=== PATIENT | male | born 1940 | race Caucasian/White ===

== ENCOUNTER 2016-09-29 15:11 | Emergency (ER) | payer MEDICARE, OTHER ==
[~2016-09-29] VITALS: Ht 175.3 cm; Wt 92.7 kg
[~2016-09-29 15:11] MED LIST: ASPIRIN E.C. 8181 MG PO; ATENOLOL25 MG PO; ATIVAN 1MG T1 MG/TAB PO; CELEXA10 MG PO; COLCRYS0.6 MG PO; GEMFIBROZIL600 MG PO; HCTZ; LOPID 600M600 MG/TAB PO; MELOXICAM; NEURONTIN300 MG/CAP PO; NEXIUM 40MG40 MG PO; NEXIUM40 MG PO; NORCO 325 MG-101 TAB PO; NORCO 325 MG-7.1 TAB PO; OMEGA-3 FISH1200 MG PO; PERCOCET 325 MG1 TA2 PO; PYRIDIUM200 M1 PO; TENORMIN 5050 MG/TAB PO; UROXATRAL10 M1 PO; WELLBUTRIN SR150 M1 PO; ZESTRIL 10MG10 MG PO; ZYLOPRIM 100MG100 MG PO
[2016-09-29 15:12] VITALS: BP 118/80; PULSE 64; TEMP 98.2
[2016-09-29] MEDS ORDERED: CEPHALEXIN500 M1 PO (16:36)
== END 2016-09-29 16:41 | disposition home or self-care (01) ==
LOC: COL.ER 15:11
DX: S61.313A Laceration without foreign body of left middle finger with damage to nail, initial encounter (principal); W31.2XXA Contact with powered woodworking and forming machines, initial encounter; Y92.009 Unspecified place in unspecified non-institutional (private) residence as the place of occurrence of the external cause; Z23 Encounter for immunization

== ENCOUNTER 2019-03-15 18:15 | Emergency (ER) | payer MEDICARE, OTHER ==
[~2019-03-15] VITALS: Ht 172.7 cm; Wt 83.2 kg
[~2019-03-15 18:15] MED LIST changes: +CEPHALEXIN500 M1 PO
[2019-03-15 18:22] VITALS: TEMP 97.3
[2019-03-15 21:21] VITALS: BP 103/74; PULSE 64
== END 2019-03-15 21:28 | disposition home or self-care (01) ==
LOC: COL.ER 18:15
DX: T18.198A Other foreign object in esophagus causing other injury, initial encounter (principal); I10 Essential (primary) hypertension; F41.9 Anxiety disorder, unspecified; Z79.82 Long term (current) use of aspirin
CPT/HCPCS: J2704; J7120

== ENCOUNTER 2019-10-13 13:10 | Emergency (ER) | payer MEDICARE, OTHER ==
[~2019-10-13] VITALS: Ht 172.7 cm; Wt 84.1 kg
[2019-10-13 13:28] VITALS: PULSE 108; TEMP 97.2
[2019-10-13 14:24] LABS: BASO % 0.2 % (0.0-2.0); GRAN % 79.4 % (42.2-75.2); HEMATOCRIT 41.8 % (42.0-52.0); HEMOGLOBIN 14.6 g/dl (13.5-18.0); LYMPH # 0.9 (1.2-3.4); LYMPH % 9.6 % (20.0-51.0); MEAN CELL VOLUME 95 fl (80.0-100.0); MEAN CORPUSCULAR HEMOGLOBIN 33 pg (27.0-31.0); MEAN CORPUSCULAR HGB CONC 35 g/dl (33.0-37.0); MEAN PLATELET VOLUME 9.9 fl (7.4-10.4); MONO # 0.9 (0.1-0.6); MONO % 10.2 % (1.7-9.3); PLATELET COUNT 196 K/mm3 (130-400); RED BLOOD COUNT 4.41 M/mm3 (4.20-5.60); REDCELL DISTRIBUTION WIDTH-CV 12.7 % (11.5-14.5)
[2019-10-13 14:32] LABS: ALANINE AMINOTRANSFERASE 15 U/L (21-72); ALBUMIN 4.9 gm/dL (3.5-5.0); ALKALINE PHOSPHATASE 58 U/L (50-136); ANION GAP 15 mmol/L (7-16); AST,SGOT 66 U/L (15-37); BILIRUBIN,TOTAL 1.7 mg/dL (0.0-1.0); BLOOD UREA NITROGEN 21 mg/dL (9-20); CARBON DIOXIDE 20 mmol/L (22-30); CHLORIDE 106 mmol/L (98-107); CREATININE, serum 1.82 (0.66-1.25); GLUCOSE 94 mg/dL (74-106); LIPASE 55 U/L (23-300); POTASSIUM 4.5 mmol/L (3.4-5.0); SODIUM 141 mmol/L (137-145); TOTAL PROTEIN 7.7 gm/dL (6.4-8.2)
[2019-10-13 14:35] LABS: C-REACTIVE PROTEIN < 0.5 mg/dL (0.0-0.9)
[2019-10-13 14:40] LABS: COLLECTION METHOD CLEAN CATCH
[2019-10-13 14:49] LABS: MUCOUS Present /lpf; PH 6 (5-8); SQUAMOUS EPITHELIAL None Seen /hpf; URINE APPEARANCE Clear; URINE BACTERIA None Seen /hpf; URINE BILIRUBIN Negative (NEGATIVE); URINE BLOOD 2+ (NEGATIVE); URINE COLOR Yellow; URINE GLUCOSE Negative (NEGATIVE); URINE KETONE 1+ (NEGATIVE); URINE LEUKOCYTE ESTERASE Negative (NEGATIVE); URINE NITRATE Negative (NEGATIVE); URINE PROTEIN(semi-quant) 2+ (NEGATIVE); URINE RBC 0-2 /hpf; URINE UROBILINOGEN Negative (NEGATIVE)
[2019-10-13] MEDS ORDERED: ZOFRAN 4MG T4 MG/TAB PO (14:49)
[2019-10-13 16:30] VITALS: BP 130/90
== END 2019-10-13 16:30 | disposition home or self-care (01) ==
LOC: COL.ER 13:10
PROVIDERS: Emergency Medicine
DX: K52.9 Noninfective gastroenteritis and colitis, unspecified (principal); I12.9 Hypertensive chronic kidney disease with stage 1 through stage 4 chronic kidney disease, or unspecified chronic kidney disease; N18.9 Chronic kidney disease, unspecified; Z79.82 Long term (current) use of aspirin
CPT/HCPCS: J1170; J2405; J7030

== ENCOUNTER 2020-05-24 10:46 | Inpatient (IN) | payer MEDICARE, OTHER ==
[~2020-05-24] VITALS: Ht 172.7 cm; Wt 90.8 kg
[~2020-05-24 10:46] MED LIST changes: -CELEXA10 MG PO; +CELEXA40 MG PO; +ZOFRAN 4MG T4 MG/TAB PO
[2020-05-24 11:58] LABS: BASO # 0.1 (0.0-0.2); BASO % 0.8 % (0.0-2.0); EOS # 0.2 (0.0-0.7); EOS % 3.1 % (0-4.0); GRAN # 4.1 (1.4-6.5); GRAN % 66.6 % (42.2-75.2); HEMATOCRIT 37.3 % (42.0-52.0); HEMOGLOBIN 12.3 g/dl (13.5-18.0); LYMPH # 0.9 (1.2-3.4); LYMPH % 15.3 % (20.0-51.0); MEAN CELL VOLUME 99 fl (80.0-100.0); MEAN CORPUSCULAR HEMOGLOBIN 33 pg (27.0-31.0); MEAN CORPUSCULAR HGB CONC 33 g/dl (33.0-37.0); MEAN PLATELET VOLUME 10.6 fl (7.4-10.4); MONO # 0.8 (0.1-0.6); MONO % 13.2 % (1.7-9.3); PLATELET COUNT 163 K/mm3 (130-400); RED BLOOD COUNT 3.77 M/mm3 (4.20-5.60); REDCELL DISTRIBUTION WIDTH-CV 13.2 % (11.5-14.5)
[2020-05-24 12:04] LABS: INR 1.2 (0.8-3.0); PROTHROMBIN TIME 13.6 SECONDS (9.7-12.8)
[2020-05-24 12:11] LABS: ALBUMIN 3.9 gm/dL (3.5-5.0); BILIRUBIN,TOTAL 0.6 mg/dL (0.0-1.0); CALCIUM 8.7 mg/dL (8.4-10.2); CREATININE, serum 1.27 (0.66-1.25); POTASSIUM 4.4 mmol/L (3.4-5.0); TOTAL PROTEIN 6.5 gm/dL (6.4-8.2)
[2020-05-24] MEDS ORDERED: REMERON 15M15 MG/TA1 PO (12:39)
[2020-05-24] MEDS ORDERED: CELEBREX400 MG PO (12:41)
[2020-05-24] MEDS ORDERED: ANTIVERT 25MG25 MG PO (12:43)
[2020-05-24] MEDS ORDERED: ROBAXIN 75750 MG/TAB PO (12:43)
[2020-05-24] MEDS ORDERED: ASPIRIN 81M81 MG/TA2 PO (12:44)
[2020-05-24] MEDS ORDERED: ZYLOPRIM 100MG100 MG PO (12:46)
[2020-05-24] MEDS ORDERED: LOPID 600M600 MG/TAB PO (12:47)
[2020-05-24] MEDS ORDERED: NEURONTIN300 MG/CAP PO (12:47)
[2020-05-24] MEDS ORDERED: ACIPHEX20 MG PO (12:48)
[2020-05-24] MEDS ORDERED: OMEGA-3 1000 MG1 CAP PO (12:49)
[2020-05-24 13:45] LABS: COLLECTION METHOD CLEAN CATCH
[2020-05-24 13:59] VITALS: BP 153/94; PULSE 78; TEMP 97.7
[2020-05-24 13:59] LABS: MUCOUS Present /lpf; PH 6 (5-8); SQUAMOUS EPITHELIAL None Seen /hpf; URINE APPEARANCE Clear; URINE BACTERIA None Seen /hpf; URINE BILIRUBIN Negative (NEGATIVE); URINE BLOOD Negative (NEGATIVE); URINE COLOR Yellow; URINE GLUCOSE Negative (NEGATIVE); URINE KETONE Negative (NEGATIVE); URINE LEUKOCYTE ESTERASE Negative (NEGATIVE); URINE NITRATE Negative (NEGATIVE); URINE PROTEIN(semi-quant) 1+ (NEGATIVE); URINE RBC 0-2 /hpf; URINE UROBILINOGEN Negative (NEGATIVE)
--- NOTE | 2020-05-24 14:00 | NUR ---
PATIENT ADMITED INTO ROOM 325 FROM ER WITH LEFT HIP FX. PATIENT IS ALERT BUT HAS HX OF MILD DEMENTIA. ORIENTED X2. PATIENT IS EKWOK. VSS. PATIENT ONLY C/O WITH MOVEMENT. LLE ELEVATED WITH PILLOW. TEDS TO RLE. SCD'S TO BLE. POSITIVE +1 PEDAL PULSES TO BLE. TURNER TO DD. IV FLUIDS INFUSING INTO RIGHT FORARM IV. NO C/O N/V. HEAD TO TOE ASSESSMENT COMPLETE. GRAND-DAUGHTER AT BEDSIDED. ER CALLED AND REPORTED CT WAS NEGATIVE, C-COLLAR REMOVED. PATIENT IS A DNR. HIGH FALL RISK, BED ALARM ON. ORIENTED TO ROOM. CALL LIGHT IN REACH.
[2020-05-24 17:22] VITALS: BP 164/102; PULSE 81; TEMP 97.7
--- NOTE | 2020-05-24 19:15 | NUR ---
MEDICATED WITH MORPHINE 2MG IVP FOR PAIN TO LEFT HIP.
[2020-05-24 19:20] VITALS: BP 153/84; PULSE 93; TEMP 97.9
--- NOTE | 2020-05-24 20:30 | NUR ---
PT IN BED, AWARE HE WILL BE HAVING SURGERY IN THE MORNING AND NPO AT MIDNIGHT. HAS IVF TO RIGHT FOREARM WITHOUT REDNESS OR SWELLING. TURNER TO BSD WITH YELLOW URINE.
--- NOTE | 2020-05-24 22:58 | NUR ---
PT SIGNS CONSENT FOR SURGERY IN AM. MEDICATED WITH MORPHINE 2MG IVP AFTER SIGNING CONSENT.
[2020-05-24 23:29] VITALS: BP 142/86; PULSE 81; TEMP 98.1
[2020-05-24 23:30] VITALS: BP 142/86; PULSE 81; TEMP 98.1
[2020-05-25] VITALS (11 sets, daily range): BP systolic 114–152; BP diastolic 71–92; PULSE 72–97; TEMP 97.3–98.1
--- NOTE | 2020-05-25 06:00 | NUR ---
PREOP BATH GIVEN. PT HAS BEEN NPO THIS SHIFT. PT IS READY FOR SURGERY.
--- NOTE | 2020-05-25 06:52 | NUR ---
TO SURGERY PER BED.
--- NOTE | 2020-05-25 10:11 | NUR ---
PT TO ROOM 325 PER BED WITH REPORT FROM [facility] @1316. PT IS A/O X3, LUNGS CTA, BOWEL SOUNDS PRESENT. DRESSING TO LEFT HIP CDI. SCDS AND TEDS BILATTERALLY.IV TO GRAVITY AT THIS TIME. PT SLEEPING/RESTING QUIETLY. GURINDER DHALIWAL IN TO SEE PT AFTER RETURNING TO FLOOR.
--- NOTE | 2020-05-25 11:58 | NUR ---
MARVEL met with the patient and his granddaughter, Wes (ph#[phone]), to discuss discharge plan. The patient lives alone in [place]. Wes and the patient's daughter, Janki (ph#[phone]), live in [place]. Wes reports that she sometimes stays in [place] to be closer to the patient and assists him, when needed. She states that she sets up his meds. The patient reports independence with ADLs and has a cane, walker, and wheelchair. The patient's PCP is Dr. Connor Kent and he receives his medications at [facility]. He reports no difficultes obtaining his meds. The patient does not have advanced directives in EMR, but he reports that he does have a DPOA-HC completed and that Dr. Kent's office should have a copy of the document. MARVEL contacted Jacinta at [facility]. Jacinta reports that they do have the document and she will fax a copy to MARVEL. Janie states that the patient's daughter, Janki, is his DPOA-HC. The patient had a left hip fracture. MARVEL discussed post-acute rehab with the patient and Wes. MARVEL provided them with Medicare.gov's list of SNFs in the [place] area. The patient and Wes chose 1) [facility] 2) [facility]. MARVEL contacted and faxed a referral to both facilities. SW awaiting their screens.
--- NOTE | 2020-05-25 14:08 | NUR ---
Kym, at [facility], reports that they are able to accept the patient. She states that the patient's granddaughter, Wes, plans on providing transportation. Kym states that they will just need the patient's COVID results. SW to inform the patient and his family and will continue to follow.
--- NOTE | 2020-05-25 16:16 | NUR ---
PT RESTING IN BED. PO PAIN MEDS PROVIDING GOOD PAIN CONTROLL AT THIS TIME.
--- NOTE | 2020-05-25 18:26 | NUR ---
PT UP TO BR WITH SBAX1 UNSTEADY GAIT. RETURNED TO BED WITH SAME UNSTEADY GAIT.
--- NOTE | 2020-05-25 21:24 | NUR ---
PT IN BED, IS ALERT AND ORIENTED X3. SL TO RIGHT FOREARM, FLUSHES WELL. REPORTS PAIN TO LEFT HIP, 3 INCISIONS NOTED WITH GAUZE OCCLUSIVE DRSGS ON D/I. TURNER TO BSD WITH YELLOW URINE, TURNER CARE PROVIDED. MEDICATED WITH HS MEDS INCLUDING NORCO 7.5MG 2 TABS AT THIS TIME.
--- NOTE | 2020-05-26 03:15 | NUR ---
PT TURNED SUPERVISOR PLATE PASTING LIGHT, FOUND HIM STANDING AT SIDE OF BED, STILL ATTACHED TO SCDS AND RAILS STILL UP. PT DISORIENTED TO PLACE AND TIME. ASSISTED TO BED, RE-ORIENTS WELL.
--- NOTE | 2020-05-26 03:26 | NUR ---
REPORTS PAIN TO LEFT HIP 07/02. MEDICATED WITH NORCO 7.5MG 2 TABS PO AT THIS TIME. PT WILL NOT TAKE OXYCODONE.
[2020-05-26 03:30] VITALS: BP 119/67; PULSE 91; TEMP 98
[2020-05-26 07:15] LABS: BASO % 0.3 % (0.0-2.0); EOS # 0.2 (0.0-0.7); GRAN # 8.9 (1.4-6.5); GRAN % 78.7 % (42.2-75.2); HEMATOCRIT 31.3 % (42.0-52.0); HEMOGLOBIN 10.3 g/dl (13.5-18.0); LYMPH # 0.9 (1.2-3.4); LYMPH % 7.9 % (20.0-51.0); MEAN CELL VOLUME 99 fl (80.0-100.0); MEAN CORPUSCULAR HEMOGLOBIN 33 pg (27.0-31.0); MEAN CORPUSCULAR HGB CONC 33 g/dl (33.0-37.0); MEAN PLATELET VOLUME 10.9 fl (7.4-10.4); MONO # 1.2 (0.1-0.6); MONO % 10.2 % (1.7-9.3); PLATELET COUNT 142 K/mm3 (130-400); RED BLOOD COUNT 3.15 M/mm3 (4.20-5.60)
[2020-05-26 07:29] LABS: CREATININE, serum 1.42 (0.66-1.25); POTASSIUM 4.9 mmol/L (3.4-5.0)
--- NOTE | 2020-05-26 08:00 | NUR ---
PATIENT IS A&O. PATIENT DOES DISPLAY SOME OCCATIONAL FORGETFULNESS BUT IS OTHERWISE ORIENTED X3. VSS. TELE INPLACE. C/O PAIN IN LLE RATED AT 5-6 ON PAIN SCALE. GAVE PRN ROXICODONE, TWO TABS WITH AM MEDS. NO C/O N/V. BREAKFAST TRAY AT BEDSIDE. RIGHT FORARM IV TO INT. TURNER TO DD. HEAD TO TOE ASSESSMENT COMPLETE. LEFT HIP DRESSINGS X3 ARE CD&I WITH GAUZE & TEGA. TEDS & SCD'S TO BLE. POSITIVE PEDAL PULSES TO BLE. PT/OT CONSULTED. NO OTHER NEEDS AT THIS TIME. CALL LIGHT IN REACH.
[2020-05-26 08:25] VITALS: BP 124/70; PULSE 78; TEMP 97.6
--- NOTE | 2020-05-26 09:00 | NUR ---
Initial visit; Patient thanked [employer] for stopping in and visiting, offering encouragement and keeping him in her prayers.
[2020-05-26 12:55] VITALS: BP 158/101; PULSE 77; TEMP 97.7
--- NOTE | 2020-05-26 15:21 | NUR ---
Guilherme, at [facility], reports that they are able to accept the patient. The patient is to tentatively discharge tomorrow, 05/27. MARVEL met with the patient to update on referrals. The patient would like to go to [facility]. MARVEL presented and read the IM form outloud to the patient. The patient verbalized understanding and gave MARVEL approval to sign the form on his behalf. MARVEL provided him with a copy. MARVEL contacted and updated the patient's daughter, Janki, and granddaughter, Wes. They are both agreeable with the patient going to [facility] tomorrow. Wes confirms that she will provide transportation for the patient tomorrow and will be here around [phone]. MARVEL attempted to contact Kym at [facility]. MARVEL left her a voicemail and faxed over updates. The patient's COVID results are still pending.
[2020-05-26 16:04] VITALS: BP 121/105; PULSE 85; TEMP 97.9
[2020-05-26 17:30] VITALS: BP 152/86
--- NOTE | 2020-05-26 18:22 | NUR ---
Patient sitting up in bed finishing up dinner. A&Ox3. VSS. IV CDI. Reporting pain in left hip 5/10, pain medication given when requested. Left hip dressing x3 intact. Old drainage in 2xdressing.Nurse instucted patient to inform nurse when he is in pain to help keep pain in left hip under control. Patient verbalized an understanding. No furhter needs expressed from the patient. Call light within reach. Bed alarm on
[2020-05-26 19:59] VITALS: BP 129/72; PULSE 86; TEMP 97.5
--- NOTE | 2020-05-26 21:35 | NUR ---
ASSISTED TO BATHROOM WITH GAIT BELT AND WALKER. TAKES HS MEDS INCLUDING NORCO 2 TABS FOR PAIN. IS ALERT AND ORIENTED, FORGETFUL. NO IV ACCESS. 3 DRSGS TO LEFT HIP D/I.
[2020-05-27] VITALS: BP 144/77; PULSE 89; TEMP 98.2
[2020-05-27 04:00] VITALS: BP 147/71; PULSE 81; TEMP 98.3
--- NOTE | 2020-05-27 05:38 | NUR ---
VOIDING PER URINAL WITHOUT PROBLEM. TAKES SCHEDULED AM MEDS INCLUDING NORCO 7.5MG 2 TABS AT THIS TIME FOR LEFT HIP PAIN.
[2020-05-27 07:28] VITALS: BP 148/73; PULSE 83; TEMP 98.3
[2020-05-27 07:28] LABS: BASO # 0.1 (0.0-0.2); BASO % 0.6 % (0.0-2.0); EOS # 0.5 (0.0-0.7); GRAN # 5.4 (1.4-6.5); GRAN % 64.7 % (42.2-75.2); HEMOGLOBIN 10.8 g/dl (13.5-18.0); LYMPH # 1.2 (1.2-3.4); LYMPH % 14.1 % (20.0-51.0); MEAN CELL VOLUME 99 fl (80.0-100.0); MEAN CORPUSCULAR HEMOGLOBIN 32 pg (27.0-31.0); MEAN CORPUSCULAR HGB CONC 33 g/dl (33.0-37.0); MEAN PLATELET VOLUME 10.6 fl (7.4-10.4); MONO # 1.1 (0.1-0.6); MONO % 13.6 % (1.7-9.3); PLATELET COUNT 142 K/mm3 (130-400); RED BLOOD COUNT 3.33 M/mm3 (4.20-5.60); REDCELL DISTRIBUTION WIDTH-CV 13.2 % (11.5-14.5)
[2020-05-27 07:29] LABS: HEMATOCRIT 32.8 % (42.0-52.0)
[2020-05-27 07:46] LABS: CALCIUM 8.8 mg/dL (8.4-10.2); CREATININE, serum 1.44 (0.66-1.25); POTASSIUM 4.4 mmol/L (3.4-5.0)
[2020-05-27] MEDS ORDERED: ASPI325T6 PO (07:55)
[2020-05-27] MEDS ORDERED: OSCAL 500 TAB500 MG PO (07:56)
[2020-05-27] MEDS ORDERED: VITAMIN C500 MG PO (07:56)
[2020-05-27] MEDS ORDERED: DUO-KAPS1 CAP PO (07:57)
[2020-05-27] MEDS ORDERED: TYLENOL 325MG325 MG PO (07:58)
[2020-05-27] MEDS ORDERED: NORCO 325 MG-7.1 TAB PO ×3 (07:59→08:57)
--- NOTE | 2020-05-27 08:42 | NUR ---
PT UP FOR BREAKFAST. AM MEDS GIVEN ORDERED .PT DECIDED TO TAKE OXYCODONE IN ADDITION TO HYDRO CODONE.
[2020-05-27] MEDS ORDERED: ROXICODONE 55 MG/TAB PO ×2 (08:55→08:57)
--- NOTE | 2020-05-27 09:30 | NUR ---
This nurse assisted patient to the bathroom, one assist with walker & gaitbelt . Patient did lose his strength as we got to the bathroom & had a hard time getting turned around to sit on toliet. After patient had Bm patient assisted to shower. Nurse assisted with back & legs. We reviewed hip precautions. Nurse assisted patient to dress & sitting in wheelchair & ready for discharge once granddaughter here to pick him up.
--- NOTE | 2020-05-27 11:10 | NUR ---
REPORT TO [facility]. PT LEFT BY POV. [facility] @ [phone]
--- NOTE | 2020-05-27 11:45 | NUR ---
Patient to discharge to [facility] today. MARVEL contacted patient's granddaughter, Wes who advised she would be in around 1030 to filler picker patient. MARVEL contacted MARVEL Mejía at [facility] to provide transport time. MARVEL faxed discharge orders and negative COVID test to Kym at [facility]. No additional needs at this time.
== END 2020-05-27 11:12 | DRG 481 ==
LOC: COL.ER 10:46 → SURG 12:33
PROVIDERS: Nurse Practitioner; Orthopaedic Surgery; Physician Assistant; ADMIT Internal Medicine
PROC: 0QH Lower Bones, Insertion (ICD-10-PCS; principal; 2020-05-25 07:30)
DX: S72.002A Fracture of unspecified part of neck of left femur, initial encounter for closed fracture (principal); J98.11 Atelectasis; W19.XXXA Unspecified fall, initial encounter; E78.5 Hyperlipidemia, unspecified; K21.9 Gastro-esophageal reflux disease without esophagitis; M19.90 Unspecified osteoarthritis, unspecified site; M54.9 Dorsalgia, unspecified; M10.9 Gout, unspecified; N40.0 Benign prostatic hyperplasia without lower urinary tract symptoms; F32.9 Major depressive disorder, single episode, unspecified; G62.9 Polyneuropathy, unspecified; Z66 Do not resuscitate; N18.9 Chronic kidney disease, unspecified; Z87.891 Personal history of nicotine dependence; I95.1 Orthostatic hypotension; R09.02 Hypoxemia; W18.30XA Fall on same level, unspecified, initial encounter; Y93.9 Activity, unspecified; Y92.009 Unspecified place in unspecified non-institutional (private) residence as the place of occurrence of the external cause
CPT/HCPCS: 99222-AI; 99231-AI; 99232-AI; 99239; A9284; C1713; J0690; J1100; J1885; J2250; J2270; J2370; J2405; J2704; J2795; J3010; J7030; J7050; J7120

== ENCOUNTER 2021-07-12 06:45 | Day surgery (SDC) | payer MEDICARE, OTHER ==
[~2021-07-12] VITALS: Ht 172.7 cm; Wt 96.3 kg
[2021-07-12] VITALS (11 sets, daily range): BP systolic 128–187; BP diastolic 72–102; PULSE 75–88; TEMP 98.1
[~2021-07-12 06:45] MED LIST changes: +ACIPHEX20 MG PO; +ANTIVERT 25MG25 MG PO; +ASPI325T6 PO; +ASPIRIN 81M81 MG/TA2 PO; +CELEBREX400 MG PO; +DUO-KAPS1 CAP PO; +OMEGA-3 1000 MG1 CAP PO; +OSCAL 500 TAB500 MG PO; +REMERON 15M15 MG/TA1 PO; +ROBAXIN 75750 MG/TAB PO; +ROXICODONE 55 MG/TAB PO; +TYLENOL 325MG325 MG PO; +VITAMIN C500 MG PO
[2021-07-12 07:50] LABS: HEMATOCRIT 42.6 % (42.0-52.0); HEMOGLOBIN 14.4 g/dl (13.5-18.0); INR 1.2 (0.8-3.0); MEAN CELL VOLUME 94 fl (80.0-100.0); MEAN CORPUSCULAR HEMOGLOBIN 32 pg (27.0-31.0); MEAN CORPUSCULAR HGB CONC 34 g/dl (33.0-37.0); MEAN PLATELET VOLUME 10.2 fl (7.4-10.4); PLATELET COUNT 189 K/mm3 (130-400); PROTHROMBIN TIME 13.8 SECONDS (9.7-12.8); RED BLOOD COUNT 4.53 M/mm3 (4.20-5.60); REDCELL DISTRIBUTION WIDTH-CV 13.3 % (11.5-14.5)
[2021-07-12 07:56] LABS: CALCIUM 9.6 mg/dL (8.4-10.2); CREATININE, serum 1.41 mg/dL (0.72-1.25); POTASSIUM 4.2 mmol/L (3.5-4.5)
[2021-07-12] MEDS ORDERED: CVS SPECTRAVIT1 EA15 PO (08:05)
[2021-07-12] MEDS ORDERED: OSCAL 500 TAB500 MG PO (08:09)
[2021-07-12] MEDS ORDERED: ASPI325T6 PO (08:10)
[2021-07-12] MEDS ORDERED: TYLENOL 325MG325 MG PO (08:11)
[2021-07-12] MEDS ORDERED: FOSAMAX 70MG TA70 MG PO (08:12)
[2021-07-12] MEDS ORDERED: ACIPHEX20 MG PO (08:12)
[2021-07-12] MEDS ORDERED: ROBAXIN 75750 MG/TAB PO (08:13)
[2021-07-12] MEDS ORDERED: BUSPAR DIVIDOSE15 MG PO (08:14)
[2021-07-12] MEDS ORDERED: NATURAL MAGNES200 MG PO (08:15)
[2021-07-12] MEDS ORDERED: MASON NATURAL1200 MG PO (08:15)
[2021-07-12] MEDS ORDERED: ATIVAN 0.50.5 MG/TAB PO (08:16)
[2021-07-12] MEDS ORDERED: VITAMIN B-6100 MG PO (08:16)
[2021-07-12] MEDS ORDERED: L-GLUTAMINE500 M5 PO (08:17)
[2021-07-12] MEDS ORDERED: FOLIC ACID0.4 MG PO (08:17)
--- NOTE | 2021-07-12 09:40 | NUR ---
SEE MERGE DOCUMENTATION FOR MEDICATION ADMINISTRATION TIMES AND INTRA/POST PROCEDURE SEDATION ASSESSMENTS. RIGHT HAND BARBEAU TEST POSITIVE.
--- NOTE | 2021-07-12 10:15 | NUR ---
Report from Connor [facility]. Right Tband with 14 cc air CD&I,good pulses and cap refill < 3 secs noted. VSS. Daughter bedside
--- NOTE | 2021-07-12 13:40 | NUR ---
14 cc air Released from right Tband and dressing applied. INT discontinued intact. Ambulated to bathroom with cane and steady gait. Discharge instructions given. Transferred to private car by kemi
== END 2021-07-12 13:45 | disposition home or self-care (01) ==
LOC: COL.CAR 06:45
PROVIDERS: Internal Medicine Cardiovascular Disease
DX: I42.8 Other cardiomyopathies (principal); I10 Essential (primary) hypertension
CPT/HCPCS: C1769; C1887; J1644; J2250; J3010; Q9967

== ENCOUNTER 2022-06-14 03:59 | Emergency (ER) | payer MEDICARE, OTHER ==
[~2022-06-14] VITALS: Ht 172.7 cm; Wt 90.9 kg
[~2022-06-14 03:59] MED LIST changes: +ATIVAN 0.50.5 MG/TAB PO; +BUSPAR DIVIDOSE15 MG PO; +CVS SPECTRAVIT1 EA15 PO; +FOLIC ACID0.4 MG PO; +FOSAMAX 70MG TA70 MG PO; +L-GLUTAMINE500 M5 PO; +MASON NATURAL1200 MG PO; +NATURAL MAGNES200 MG PO; +VITAMIN B-6100 MG PO
[2022-06-14 04:06] VITALS: TEMP 97
[2022-06-14] MEDS ORDERED: PERCOCET 325 MG1 TA2 PO (05:02)
[2022-06-14 05:27] VITALS: BP 162/98; PULSE 79
== END 2022-06-14 05:28 | disposition home or self-care (01) ==
LOC: COL.ER 03:59
DX: S90.222A Contusion of left lesser toe(s) with damage to nail, initial encounter (principal); W23.0XXA Caught, crushed, jammed, or pinched between moving objects, initial encounter

== ENCOUNTER 2024-04-01 16:51 | Emergency (ER) | payer MEDICARE, OTHER ==
[~2024-04-01] VITALS: Ht 172.7 cm; Wt 81.8 kg
[~2024-04-01 16:51] MED LIST changes: +CELEXA 20MG20 MG/TAB PO; +MOBIC15 MG PO; +TYLENOL 500MG500 MG PO; +WELLBUTRIN XL300 M1 PO
[2024-04-01 17:37] LABS: BASO % 0.5 % (0.0-2.0); EOS # 0.4 K/mm3 (0.0-0.7); EOS % 4.4 % (0.0-4.0); GRAN # 5.9 K/mm3 (1.4-6.5); GRAN % 74.5 % (42.2-75.2); HEMATOCRIT 44.3 % (42.0-52.0); HEMOGLOBIN 14.7 g/dl (13.5-18.0); LYMPH # 1.1 K/mm3 (1.2-3.4); LYMPH % 14.3 % (20.0-51.0); MEAN CELL VOLUME 96 fl (80.0-100.0); MEAN CORPUSCULAR HEMOGLOBIN 32 pg (27-31); MEAN CORPUSCULAR HGB CONC 33 g/dl (33.0-37.0); MEAN PLATELET VOLUME 11.2 fl (7.4-10.4); MONO # 0.4 K/mm3 (0.1-0.6); MONO % 5.2 % (1.7-9.3); PLATELET COUNT 206 K/mm3 (130-400); RED BLOOD COUNT 4.62 M/mm3 (4.20-5.60); REDCELL DISTRIBUTION WIDTH-CV 14.1 % (11.5-14.5)
[2024-04-01 17:42] LABS: INR 1.2 (0.8-3.0); PROTHROMBIN TIME 12.9 SECONDS (9.7-12.8)
[2024-04-01 17:54] LABS: ALANINE AMINOTRANSFERASE 18 U/L (0-55); ALBUMIN 3.9 g/dL (3.4-4.8); ALKALINE PHOSPHATASE 112 U/L (40-150); ANION GAP 14 mmol/L (7-16); AST,SGOT 21 U/L (5-34); BILIRUBIN,TOTAL 0.6 mg/dL (0.2-1.2); BLOOD UREA NITROGEN 25 mg/dL (8-26); CALCIUM 10.2 mg/dL (8.4-10.2); CHLORIDE 104 mEq/L (98-107); CREATININE, serum 1.47 mg/dL (0.72-1.25); GLUCOSE 96 mg/dL (70-99); POTASSIUM 4.9 mEq/L (3.5-4.5); SODIUM 139 mEq/L (136-145); TOTAL PROTEIN 7.2 g/dl (6.2-8.1)
[2024-04-01 18:05] LABS: TROPONIN-I < 0.010 ng/mL (0.00-0.033)
[2024-04-01 18:59] LABS: COLLECTION METHOD CATHETER
[2024-04-01 19:22] LABS: PH 5.5 (5.0-8.5); URINE APPEARANCE CLEAR (CLEAR/HAZY); URINE BLOOD NEGATIVE (NEGATIVE); URINE COLOR YELLOW (YELLOW); URINE GLUCOSE NEGATIVE (NEGATIVE); URINE KETONE NEGATIVE (NEGATIVE); URINE NITRATE NEGATIVE (NEGATIVE); URINE PROTEIN(semi-quant) NEGATIVE (NEGATIVE); URINE UROBILINOGEN 0.2 E.U/dL (0.2-1.0)
[2024-04-01 20:00] VITALS: BP 114/80; PULSE 84; TEMP 98.1
== END 2024-04-01 20:00 | disposition home or self-care (01) ==
LOC: COL.ER 16:51
PROVIDERS: Nurse Practitioner
DX: R53.1 Weakness (principal); E87.5 Hyperkalemia